=== PATIENT | female | born 1965 | race Caucasian/White ===

== ENCOUNTER → 2021-04-20 10:20 | Outpatient (BNVA) | payer MEDICARE, MEDICAID, SELFPAY | PROVIDERS: PCP Internal Medicine Rheumatology; Visit Provider Nurse Practitioner Family | DX: M79.7 Fibromyalgia (principal); M25.50 Pain in unspecified joint; E11.40 Type 2 diabetes mellitus with diabetic neuropathy, unspecified | CPT/HCPCS: 99202 ==

== ENCOUNTER → 2021-05-25 09:50 | Outpatient (BNVA) | payer MEDICARE, MEDICAID, SELFPAY | PROVIDERS: PCP Internal Medicine Rheumatology; Visit Provider Nurse Practitioner Family | DX: Z13.89 Encounter for screening for other disorder (principal) ==

== ENCOUNTER → 2021-06-13 08:11 | Outpatient (BNVA) | payer MEDICARE, MEDICAID, SELFPAY | PROVIDERS: PCP Internal Medicine Rheumatology; Visit Provider Nurse Practitioner Family | DX: M79.7 Fibromyalgia (principal); M25.50 Pain in unspecified joint; M47.27 Other spondylosis with radiculopathy, lumbosacral region; E11.40 Type 2 diabetes mellitus with diabetic neuropathy, unspecified | CPT/HCPCS: 99212 ==

== ENCOUNTER → 2021-10-04 11:04 | Day surgery (SDC) | payer OTHER, SELFPAY ==
[2021-09-28 10:37] VITALS: BMI 32.4
--- NOTE | 2021-10-03 10:18 | HO.ANESPROP2 ---
HPI - Anesthesia Eval Consult details Narrative: CX'd DOS by surgeon for hyperglycemia and htn. T/C to PCP with message left regarding POC and BP. 55yo F for Spinal Stimulation Generator Change PMFSH Active Problems Active Problems: All Active Problems (Updated 09/28/21 @ 10:37 by Rachael Murphy RN) Fibromyalgia (Acute) Diabetic neuropathy (Acute) Polyarthralgia (Acute) Spondylosis of lumbosacral spine with radiculopathy (Acute) Past Medical History Medical History (Updated 09/28/21 @ 10:37 by Rachael Murphy RN) Chronic renal insufficiency Diabetes Diabetic neuropathy Fibromyalgia GERD (gastroesophageal reflux disease) HTN (hypertension) PTSD (post-traumatic stress disorder) S/P placement of nerve stimulator Social History Social History Patient Tobacco Use Status: Never used Tobacco Are you DNR?: No Advance Directives: No Advance Directives Information Provided: Yes Nutrition Risks: No Nutritional Risk Meds Allergies Allergy/AdvReac Type Severity Reaction Status Date / Time No Known Allergies Allergy Verified 06/13/21 08:43 Home Medications Medication Instructions Recorded Confirmed Last Taken Type albuterol sulfate 90 mcg/actuation inhalation 04/20/21 06/13/21 10/04/21 History aerosol inhaler (Ventolin HFA) diclofenac sodium 1 % topical gel topical 04/20/21 06/13/21 Unknown History amlodipine 5 mg tablet 5 mg PO DAILY 05/25/21 06/13/21 10/04/21 History cyclobenzaprine 10 mg tablet 10 mg PO TID PRN 05/25/21 06/13/21 Unknown History dulaglutide 1.5 mg/0.5 mL 1.5 mg subcut QWEEK 05/25/21 06/13/21 Unknown History subcutaneous pen injector (Trulicity) duloxetine 60 mg capsule,delayed 60 mg PO BID 05/25/21 06/13/21 10/04/21 History release ezetimibe 10 mg tablet 10 mg PO DAILY 05/25/21 06/13/21 Unknown History gabapentin 100 mg capsule 100 mg PO BID 05/25/21 06/13/21 10/04/21 History hydrochlorothiazide 25 mg tablet 25 mg PO DAILY 05/25/21 06/13/21 Unknown History insulin glargine 100 unit/mL (3 14 unit subcut DAILY 05/25/21 06/13/21 Unknown History mL) subcutaneous pen (Lantus Solostar U-100 Insulin) lamotrigine 150 mg tablet 150 mg PO DAILY 05/25/21 06/13/21 10/04/21 History linaclotide 145 mcg capsule 145 mcg PO DAILY 05/25/21 06/13/21 Unknown History (Linzess) lisinopril 5 mg tablet 5 mg PO DAILY 05/25/21 06/13/21 10/04/21 History lurasidone 20 mg tablet (Latuda) 20 mg PO DAILY 05/25/21 06/13/21 Unknown History montelukast 10 mg tablet 10 mg PO BEDTIME 05/25/21 06/13/21 Unknown History omeprazole 20 mg capsule,delayed 20 mg PO DAILY 05/25/21 06/13/21 10/04/21 History release trazodone 50 mg tablet 50 mg PO BEDTIME 05/25/21 06/13/21 Unknown History Exam Exam Date and Time: October 03, 2021 1018 Height,Weight and Vital Signs: Height 5 ft 4 in Weight 85.729 kg Assessment and Plan Assessment Anesthesia Assessment: Chart Reviewed
[2021-10-04 12:01] VITALS: BP 197/110; PULSE 110; RESP 19; TEMP 36.1; O2SAT 97
[2021-10-04 12:03] LABS: Glucose, Whole Blood 387 mg/dL (60-115)
--- NOTE | 2021-10-04 12:18 | PC.NURSE ---
dr adler at bedside pt surgery canceled high bs and high b/p denies any symptoms
--- NOTE | 2021-10-04 12:20 | PC.NURSE ---
pt vernalized understanding of new careplan d/c home surgery cancelled
== END ==
PROVIDERS: PCP Family Medicine; Visit Provider Anesthesiology
DX: M47.27 Other spondylosis with radiculopathy, lumbosacral region (principal); Z53.09 Procedure and treatment not carried out because of other contraindication; E11.65 Type 2 diabetes mellitus with hyperglycemia; I10 Essential (primary) hypertension; Z79.4 Long term (current) use of insulin
CPT/HCPCS: 82947; J0690

== ENCOUNTER 2021-11-09 09:47 | Day surgery (SDC) | payer MEDICARE, MEDICAID, SELFPAY ==
--- NOTE | 2021-11-08 10:27 | HO.ANESPROP2 ---
Documented by User: Haleigh Marin NP 11/08/21 10:35 HPI - Anesthesia Eval Consult details Narrative: 55yo F for Lumbar Spinal Stimulation Generator Change/Replacement CX'd DOS 10/04/21 for elevated blood sugar and elevated blood pressure. Pt has since f/u with litigation support analyst. Per Dr Montoya, POC needs to be below 200 to proceed with surgery. ALFREDITO Gordon at pain office to contact PCP to see if eval regarding BP since 09/2021 PMFSH Active Problems Active Problems: All Active Problems (Updated 09/28/21 @ 10:37 by Rachael Murphy RN) Fibromyalgia (Acute) Diabetic neuropathy (Acute) Polyarthralgia (Acute) Spondylosis of lumbosacral spine with radiculopathy (Acute) Past Medical History Medical History Chronic renal insufficiency Diabetes Diabetic neuropathy Fibromyalgia GERD (gastroesophageal reflux disease) HTN (hypertension) PTSD (post-traumatic stress disorder) S/P placement of nerve stimulator Surgical History Surgical History History of esophagogastroduodenoscopy (EGD) Hx of arthroscopic knee surgery Hx of colonoscopy Hx of tubal ligation Social History Social History Patient Tobacco Use Status: Never used Tobacco Are you DNR?: No Advance Directives: No Advance Directives Information Provided: Yes Nutrition Risks: No Nutritional Risk Meds Allergies Allergy/AdvReac Type Severity Reaction Status Date / Time No Known Allergies Allergy Verified 11/09/21 10:26 Home Medications Medication Instructions Recorded Confirmed Last Taken Type albuterol sulfate 90 mcg/actuation inhalation 04/20/21 06/13/21 10/04/21 History aerosol inhaler (Ventolin HFA) diclofenac sodium 1 % topical gel topical 04/20/21 06/13/21 Unknown History amlodipine 5 mg tablet 5 mg PO DAILY 05/25/21 11/05/21 11/09/21 History cyclobenzaprine 10 mg tablet 10 mg PO TID PRN Muscle Pain 05/25/21 11/05/21 11/09/21 History dulaglutide 1.5 mg/0.5 mL 1.5 mg subcut QWEEK 05/25/21 11/05/21 Unknown History subcutaneous pen injector (Trulicity) duloxetine 60 mg capsule,delayed 60 mg PO BID 05/25/21 11/05/21 11/09/21 History release ezetimibe 10 mg tablet 10 mg PO DAILY 05/25/21 11/05/21 11/09/21 History gabapentin 100 mg capsule 100 mg PO BID 05/25/21 11/05/21 11/09/21 History hydrochlorothiazide 25 mg tablet 25 mg PO DAILY 05/25/21 11/05/21 11/09/21 History insulin glargine 100 unit/mL (3 14 unit subcut DAILY 05/25/21 11/05/21 Unknown History mL) subcutaneous pen (Lantus Solostar U-100 Insulin) lamotrigine 150 mg tablet 150 mg PO DAILY 05/25/21 11/05/21 11/09/21 History linaclotide 145 mcg capsule 145 mcg PO DAILY 05/25/21 11/05/21 Unknown History (Linzess) lisinopril 5 mg tablet 5 mg PO DAILY 05/25/21 11/05/21 11/09/21 History lurasidone 20 mg tablet (Latuda) 20 mg PO DAILY 05/25/21 11/05/21 11/09/21 History montelukast 10 mg tablet 10 mg PO BEDTIME 05/25/21 11/05/21 Unknown History omeprazole 20 mg capsule,delayed 20 mg PO DAILY 05/25/21 11/05/21 11/09/21 History release trazodone 50 mg tablet 50 mg PO BEDTIME 05/25/21 11/05/21 Unknown History cyanocobalamin (vitamin B-12) 1 tab PO DAILY 11/05/21 11/05/21 Unknown History 1,000 mcg tablet Exam Exam Date and Time: November 08, 2021 1027 Assessment and Plan Assessment Anesthesia Assessment: Chart Reviewed Documented by User: Mitzi Cedillo MD 11/09/21 10:43 [facility] Past Medical History Medical History Chronic renal insufficiency Diabetes Diabetic neuropathy Fibromyalgia GERD (gastroesophageal reflux disease) HTN (hypertension) PTSD (post-traumatic stress disorder) S/P placement of nerve stimulator Functional capacity: independent ambulation Patient : No Family History Family history of problems with anesthesia: No Surgical History Surgical History History of esophagogastroduodenoscopy (EGD) Hx of arthroscopic knee surgery Hx of colonoscopy Hx of tubal ligation History of Problems with Anesthesia: No Social History Social History Patient Tobacco Use Status: Never used Tobacco Are you DNR?: No Advance Directives: No Advance Directives Information Provided: Yes Nutrition Risks: No Nutritional Risk Meds Allergies Allergy/AdvReac Type Severity Reaction Status Date / Time No Known Allergies Allergy Verified 11/09/21 10:26 Home Medications Medication Instructions Recorded Confirmed Last Taken Type albuterol sulfate 90 mcg/actuation inhalation 04/20/21 06/13/21 10/04/21 History aerosol inhaler (Ventolin HFA) diclofenac sodium 1 % topical gel topical 04/20/21 06/13/21 Unknown History amlodipine 5 mg tablet 5 mg PO DAILY 05/25/21 11/05/21 11/09/21 History cyclobenzaprine 10 mg tablet 10 mg PO TID PRN Muscle Pain 05/25/21 11/05/21 11/09/21 History dulaglutide 1.5 mg/0.5 mL 1.5 mg subcut QWEEK 05/25/21 11/05/21 Unknown History subcutaneous pen injector (Trulicity) duloxetine 60 mg capsule,delayed 60 mg PO BID 05/25/21 11/05/21 11/09/21 History release ezetimibe 10 mg tablet 10 mg PO DAILY 05/25/21 11/05/21 11/09/21 History gabapentin 100 mg capsule 100 mg PO BID 05/25/21 11/05/21 11/09/21 History hydrochlorothiazide 25 mg tablet 25 mg PO DAILY 05/25/21 11/05/21 11/09/21 History insulin glargine 100 unit/mL (3 14 unit subcut DAILY 05/25/21 11/05/21 Unknown History mL) subcutaneous pen (Lantus Solostar U-100 Insulin) lamotrigine 150 mg tablet 150 mg PO DAILY 05/25/21 11/05/21 11/09/21 History linaclotide 145 mcg capsule 145 mcg PO DAILY 05/25/21 11/05/21 Unknown History (Linzess) lisinopril 5 mg tablet 5 mg PO DAILY 05/25/21 11/05/21 11/09/21 History lurasidone 20 mg tablet (Latuda) 20 mg PO DAILY 05/25/21 11/05/21 11/09/21 History montelukast 10 mg tablet 10 mg PO BEDTIME 05/25/21 11/05/21 Unknown History omeprazole 20 mg capsule,delayed 20 mg PO DAILY 05/25/21 11/05/21 11/09/21 History release trazodone 50 mg tablet 50 mg PO BEDTIME 05/25/21 11/05/21 Unknown History cyanocobalamin (vitamin B-12) 1 tab PO DAILY 11/05/21 11/05/21 Unknown History 1,000 mcg tablet Exam Airway Mallampati Class: III TM Dist: >3cm Neck ROM: Full Heart: RRR Lungs: CTA Assessment and Plan Final Anesthetic Review Family History of Problems with Anesthesia: No History of Problems with Anesthesia: No ASA Class: II Final Preanesthetic Review: No Changes in Pt Med Stat, Meds/Allgs Chart Reviewed, Consent Obtained/Reviewed and Anes Risks/Benef Reviewed Patient Risk: Low Procedure Risk: Low Anesthetic Plan Anesthetic Plan: GA Disposition: Standard PACU
[2021-11-09] VITALS (11 sets, daily range): BP systolic 139–153; BP diastolic 70–90; PULSE 72–88; RESP 12–18; TEMP 36.1–36.6; O2SAT 95–100; BMI 35.9
--- NOTE | ~2021-11-09 | FL_ITS ---
EXAMINATION: XR FLUOROSCOPY WITH IMAGES CLINICAL INFORMATION: Lumbar spinal cord stimulator generator change. COMPARISON: None. TECHNIQUE: Fluoroscopy performed by Dr. Giorgio Montoya. Fluoroscopy time: Less than 1 minute. Cumulative Dose: 1.10 mGy. DAP: 0.168 Gy-cm2. Images: 1. FINDINGS: Please refer to the provider note for full procedure details. FL/FL guidance in OR IMPRESSION: Fluoroscopic assistance provided at the time of the generator change. Please refer to the provider's note for full procedure details.
[2021-11-09] MEDS: Lactated Ringers 1,000 ML 100 ML IVCONT (10:18)
[2021-11-09 10:31] LABS: Glucose, Whole Blood 117 mg/dL (60-115)
--- NOTE | 2021-11-09 11:11 | P.HPSUR_ITS ---
Pre-Procedural Eval Section A Date of Service: 11/09/21 The patient is an INPATIENT: No Changes since office visit: Yes Patient answered all questions The History & Physical has been completed within 30 days and I have reviewed it.: No Section B Chief Complaint: Other spondylosis with radiculopathy, lumbosacral Details of Present Illness: as above Relevant Family History (Specify if Yes): No Present Medications: see Short Stay Collaborative assessment Medical History: No relevant PMH History of Previous Operations: No relevant previous surgery Allergies: Allergies Allergy/AdvReac Type Severity Reaction Status Date / Time No Known Allergies Allergy Verified 11/09/21 10:26 Review of Systems Sugical H&P ROS: Negative: Constitution, Cardiovascular, Respiratory, Neurological, Psychiatric, Hem-Onc, Allergic/Immunologic, Gastrointestinal, Genitourinary, Musculoskeletal, Integumentary, Endocrine and Eyes/Ears/Nose/Throat Exam Surgical H&P Exam: Normal: HEENT, Normal: Heart, Normal: Lungs, Normal: Extremities, Normal: Abdomen, Normal: Skin and Normal: Neurological Plan Diagnosis/Plan: Unchanged I have reviewed the history and physical and performed a pertinent physical examination on my patient. The patient wanted to replace the battery with the rechargeable model of Medtronic battery to allow herself to have higher level of SCS stimulation. She wanted also to relocate the battery from the left side to the right side. She was explained that in the order to do so I would need to perform three 5-6 cm long incisions and in the order to close the wound of the old large non- rechargeable battery I would need to use a Kieran Burns drain and keep it in for at least 4-5 weeks if not longer. When the patient understood the explanations she decided to keep the new battery at the old site. We will procede with battery exchange surgery without changing the location of the battery.
--- NOTE | 2021-11-09 11:28 | P.OP_ITS ---
Operative Note Operative Note Date of Service: 11/09/21 Narrative: Shawnee is very pleasant 55 y.o. female who came today into the operating room for the procedure of the exchange of non-rechargeable battery for rechargeable [employer] Intellis battery. The patient originally wanted to relocate her battery to the right side however when she was explained that this would require her to have three 5-6 cm incisions and to wear GODWIN drain for the next 5-6 weeks at least - she changed her mind and decided to go for the battery exchange procedure without the change of the location of the battery..? Preoperatively patient received? 2 g cephasolin approximately 20 minutes before procedure. After obtaining informed consent patient was brought to the operating room, SHE was positioned supine on the stretcher , [place] [employer]hes[employer] monitors were applied and patient was administered general endotracheal anesthesia. After that the patient was transferred to the operating table prone. All pressure points were protected. ?Time-out was performed delineating correct site, side, the nature of the procedure, patient's allergy, preoperative antibiotic if needed.? All operating room staff was participating in OR time-out procedure. Patient's entire back was prepped with ChloraPrep twice and draped with full body fenestrated drape and ioban film. Sterilely draped C-arm was brought over the operating field and picture of the battery was demonstrated on the screen. It was positioned right on top of the illiac crest. The decision was made to extend the battery pocket cephalad and close redundant tissue pocket in the area of the caudad direction. In the projection of the previous SCS implantation wound horizontal incision was made 6.5 cm long using 10 blade scalpel, hemostasis was performed using? bipolar electrocautery. the wound was widened using hemostat clamp and the old non-rechargeable battery was located in the wounds.? Anchoring sutures were severed and the battery was delivered to the level of the skin. The epidural leads were unlocked and disconnected from the battery and the battery was delivered to the OR instrument table for the future disposal. The new Intellis battery was sterilely obtained and connected to the existing epidural leads. Impedance was checked and appeared to be adequate short of 1 contact not showing appropriate impedance. That was pre last contact on 8-16 electrodes position. The [employer] payable representative inform me that he can work around with this contact even missing. Using sharp and dull dissection pocket for the battery was formed in cephalad direction from the incision.? Thorough hemostasis was obtained After that the? wound pocket going into caudad direction was explored and connective tissues forming the capsule of the battery was excised using sharp dissection with Metzenbaum sutures. After that the pocket was closed using 0-0 Polysorb suture. The anchoring sutures Tycron 0.0 were applied to the central medial and central lateral points of the wound they were connected to orifices of the b attery. The epidural leads were gathered behind the body of the battery and the battery was dislodged into the pocket with the distal tip of the battery facing cephalad. The anchoring sutures were tied up the position of the battery appeared to be satisfactory. After that the wound was closed using 0.0 Polysorb suture, the wound edges were superimposed using 2.0 Polysorb suture and candida were applied to the suture line. Bacitracin ointment will as applied to the suture line. Compression dressing was applied to the area of the wound. Abdominal binder was submitted to the patient. After that the patient was awaken extubated and transferred stable to PACU. She tolerated the procedure well.
--- NOTE | 2021-11-09 13:10 | PM.OP ---
Brief Operative Note Date of Service: 11/09/21 Pre-op diagnosis: chronic pain syndrome, spondylosis lumbar spine Post-op diagnosis: same Procedure: removal and replacement of Medtronics SCS battery Implants: Medtronics Intellis battery Surgeon: Giorgio Montoya MD Anesthesia: GETA Was an Type Copyist used for this Procedure?: No Estimated blood loss (mL): 5 Pathology: none sent Condition: stable Disposition: PACU
== END 2021-11-09 15:28 | disposition home or self-care (01) ==
PROVIDERS: PCP Family Medicine; Visit Provider Anesthesiology
PROC: (CPT 63685; principal; 2021-11-09 11:30)
DX: M47.27 Other spondylosis with radiculopathy, lumbosacral region (principal); G89.4 Chronic pain syndrome; M79.7 Fibromyalgia; M25.50 Pain in unspecified joint; F43.10 Post-traumatic stress disorder, unspecified; E11.40 Type 2 diabetes mellitus with diabetic neuropathy, unspecified; E11.22 Type 2 diabetes mellitus with diabetic chronic kidney disease; I12.9 Hypertensive chronic kidney disease with stage 1 through stage 4 chronic kidney disease, or unspecified chronic kidney disease; N18.30 Chronic kidney disease, stage 3 unspecified; R56.9 Unspecified convulsions; K29.70 Gastritis, unspecified, without bleeding; Z79.4 Long term (current) use of insulin; Z79.899 Other long term (current) drug therapy
CPT/HCPCS: 63685; 82947; C1787; C1820; J0690; J2250; J2405; J2795; J3010; J3370

== ENCOUNTER → 2021-11-15 08:31 | Outpatient (BNVA) | payer MEDICARE, MEDICAID, SELFPAY | PROVIDERS: PCP Family Medicine; Visit Provider Anesthesiology | DX: M79.7 Fibromyalgia (principal); M47.27 Other spondylosis with radiculopathy, lumbosacral region; M25.50 Pain in unspecified joint; E11.40 Type 2 diabetes mellitus with diabetic neuropathy, unspecified; Z98.890 Other specified postprocedural states | CPT/HCPCS: 99212 ==

== ENCOUNTER → 2021-11-22 09:39 | Outpatient (BNVA) | payer MEDICARE, MEDICAID, SELFPAY | PROVIDERS: PCP Family Medicine; Visit Provider Anesthesiology | DX: M79.7 Fibromyalgia (principal); M47.27 Other spondylosis with radiculopathy, lumbosacral region; E11.40 Type 2 diabetes mellitus with diabetic neuropathy, unspecified; M25.50 Pain in unspecified joint; Z98.890 Other specified postprocedural states | CPT/HCPCS: 99212 ==

== ENCOUNTER 2022-11-28 14:22 | Outpatient (REF) | payer MEDICARE, MEDICAID, SELFPAY ==
--- NOTE | 2022-11-29 09:33 | MHC.AU.HA3 ---
Hearing Instrument Follow-Up- Binaural Date of Visit: 11/28/22 Right Ear: Gabriel, Model, Color, Serial Number: Jolly MckinleyPro RAGHAV SN: [id number] Color: [place] Brown Battery Size: 312 User Experience Developer/Slim Tube: 2/85 Earmold/Dome/CShell/SlimTip:6mm double león dome with retention tail Type of Wax Guard: miniFit ProWax Dispensed By: [place] Date of Fitting: Per Oticon purchased in September 2016 Left Ear: Gabriel, Model, Color, Serial Number: Jolly AVILEZ SN: [id number] Color: [place] Brown Battery Size: 312 User Experience Developer/Slim Tube: 2/85 Earmold/Dome/CShell/SlimTip: 6mm double león dome with retention tail Type of Wax Guard: miniFit ProWax Dispensed By: [place] Date of Fitting: Per Oticon purchased in September 2016 Follow-Up Summary: Shawnee was a previous patient at a provider in [place]; however, the office reportedly closed and their second office in [place] does not accept her insurance. Shawnee was >20 minutes late to 30 minute appointment as she was reportedly lost; therefore, due to time constraints, hearing aids were not read into the programming software. Hearing aids were cleaned. Domes, wax guards, and retention tails were replaced. Receivers are discolored but still working. Right alumni relations coordinator was twisted. Reshaped the alumni relations coordinator with heat gun. Due to the age of the hearing aids, discussed upgrading to new technology. Recommendations: Shawnee will contact her PCP for a doctor's order for a hearing test to begin the process for new hearing aids. Diagnosis Code(s): Primary Diagnosis: H91.93 Unspecified Hearing Loss, Bilateral Signature: Provider: Deysi Schulte, [facility]
== END 2022-11-28 14:23 | disposition home or self-care (01) ==
LOC: HO.HAP 14:22
PROVIDERS: Visit Provider Family Medicine
DX: Z46.1 Encounter for fitting and adjustment of hearing aid (principal); H91.93 Unspecified hearing loss, bilateral
CPT/HCPCS: 92593; 99499

== ENCOUNTER 2023-04-09 15:03 | Outpatient (REF) | payer MEDICARE, MEDICAID, SELFPAY ==
--- NOTE | 2023-04-09 16:36 | MHC.AU.HA3 ---
Hearing Instrument Follow-Up- Binaural Date of Visit: 04/09/23 Right Ear: Gabriel, Model, Color, Serial Number: Jolly AVILEZ SN: [id number] Color: [place] Brown Battery Size: 312 [place] Redevelopment Site Manager/Slim Tube: 2/85 Earmold/Dome/CShell/SlimTip:6mm double león dome with retention tail Type of Wax Guard: miniFit ProWax Dispensed By: [place] Date of Fitting: Per Oticon purchased in September 2016 Left Ear: Gabriel, Model, Color, Serial Number: Jolly AVILEZ SN: [id number] Color: [place] Brown Battery Size: 312 [place] Redevelopment Site Manager/Slim Tube: 2/85 Earmold/Dome/CShell/SlimTip: 6mm double león dome with retention tail Type of Wax Guard: miniFit ProWax Dispensed By: [place] Date of Fitting: Per Oticon purchased in September 2016 Follow-Up Summary: Here for evaluation, see audiogram. These are her old aids, she reportedly has newer aids that are currently lost. Aids cleaned and checked, changed domes and wax guards. Listening check positive. Adjusted to new audio, stepped from adaptation 2 to 3. Improvement reported. Pt is going to reach out to [facility] to try to get any old KILLIAN info faxed to us so that we can replace her aids under L&D, if possible. Otherwise we will purse medical clearance and prior approval to get her new hearing aids. Recommendations: Recommendations: Have records including relevant hearing aid information forwarded to us so we can pursue L&D if possible, patient reports [facility] in [place] is now closed but she has been in touch with [facility]. Diagnosis Code(s): Primary Diagnosis: H90.3 Bilateral Sensorineural Hearing Loss Signature: Provider: Deysi Vaca, [facility]
== END 2023-04-09 15:04 | disposition home or self-care (01) ==
LOC: HO.SH 15:03
PROVIDERS: Visit Provider Family Medicine
DX: Z01.118 Encounter for examination of ears and hearing with other abnormal findings (principal); H90.3 Sensorineural hearing loss, bilateral
CPT/HCPCS: 92557; 92593; 99499

== ENCOUNTER 2023-04-23 14:14 | Outpatient (REF) | payer MEDICARE, MEDICAID, SELFPAY ==
--- NOTE | 2023-04-23 15:02 | MHC.AU.HA1 ---
Hearing Aid Evaluation Date of Visit: 04/23/23 Historical Information: Description of Hearing: Borderline normal to moderate sensorineural hearing loss, bilateral. Current personal amplification information, if applicable: Currently using old Nera 2 pro hearing aids, both of her newest HAs lost. Summary: Pt reports she got new hearing aids 1-2 years ago and both were recently lost somewhere between a trip in an ambulance and stay in [facility]. Those aids had been acquired elsewhere, a hearing life facility that is no longer in business. She was able to acquire the serial numbers of her lost hearing aids. Oticon Opn S2 R, [id number] under warranty until 04/06/25 and [id number] which has already been replaced under L&D per the authorization specialist. At this point we will replace the aid that is still covered under L&D and have to submit a PA request to [facility] to acquire a new left hearing aid so that she will have an appropriate pair. Completed and signed the L&D form today. Hearing Aid Prescription: Based on the individual?s shared listening needs, communication environments, dexterity, desire for connectivity, and personal preferences, the following prescription for amplification has been made: Right ear: Make, Model, Color: Oticon Opn S 2 miniRITE R, Chroma Beige Battery Size: Rechargeable Aluminum Siding Mechanic/Slim Tube: 2/85 with tail Type of Earmold/Dome/CShell/SlimTip: 6mm double león Left ear: Make, Model, Color: Oticon Opn S 2 miniRITE R, Chroma Beige Battery Size: Rechargeable Aluminum Siding Mechanic/Slim Tube: 2/85 with tail Type of Earmold/Dome/CShell/SlimTip: 6mm double león Plan of Care: Patient wishes to purchase hearing aids as prescribed Action Taken/Action Needed: Prior authorization to be requested Medical Clearance to be requested from PCP/ENT Hearing Instrument Fitting to be scheduled when materials arrive Primary Diagnosis: H90.3 Bilateral Sensorineural Hearing Loss Signature: Provider: Deysi Vaca, [facility]
== END 2023-04-23 14:15 | disposition home or self-care (01) ==
LOC: HO.HAP 14:14
PROVIDERS: Visit Provider Family Medicine
DX: Z46.1 Encounter for fitting and adjustment of hearing aid (principal); H90.3 Sensorineural hearing loss, bilateral
CPT/HCPCS: 92590

== ENCOUNTER 2023-05-19 14:00 | Outpatient (REF) | payer MEDICARE, MEDICAID, SELFPAY ==
--- NOTE | 2023-05-19 15:12 | MHC.AU.HA2 ---
Hearing Instrument Fitting- Adult- Binaural Date of Visit: 05/19/23 Hearing Instruments Dispensed: Right Ear: Make, Model, Color, Serial Number: Oticon Opn S 2 miniRITE R, Chroma Beige S#[id number] Emergency Room Specialist Repair Warranty: 04/11/2025 Emergency Room Specialist Loss and Damage Warranty: Used [facility] Service Plan: n/a Battery Size: Rechargeable Labor Contract Analyst/Slim Tube: 285 with tail Earmold/Dome/CShell/SlimTip: 6mm double león Type of Wax Guard: miniFit ProWax Left Ear: Make, Model, Color, Serial Number: Oticon Opn S 2 miniRITE R, Chroma Beige S#[id number] Emergency Room Specialist Repair Warranty: 05/29/2026 Emergency Room Specialist Loss and Damage Warranty: 05/29/2026 [facility] Service Plan: 05/19/24 Battery Size: Rechargeable Labor Contract Analyst/Slim Tube: 85 with tail Earmold/Dome/CShell/SlimTip: 6mm double león Type of Wax Guard: miniFit ProWax Accessories/Assistive Technology: [employer] minirite image processing engineer S#[id number] Warranty 05/29/2026 Summary of Fitting: Here with . Dispensed L&D replacement aid for right ear with new Opn S2 to match on the left. Verified to DSL Adult 5 targets. Good subjective comfort and benefit reported. Longtime KILLIAN user. Reviewed charging, domes and wax guards. VC enabled. Pt does not have an iPhone, these aids not compatible with Android. Sent her back up Nera 2 aids home in her new case. Recommendations: Recommendations: Hearing instrument care and maintenance were discussed and practiced. A hearing instrument follow-up was scheduled. Please call our clinic with any questions or concerns. Diagnosis Code(s): Primary Diagnosis: H90.3 Bilateral Sensorineural Hearing Loss Signature: Provider: Deysi Vaca, [facility]
== END 2023-05-19 14:01 | disposition home or self-care (01) ==
LOC: HO.HAP 14:00
PROVIDERS: Visit Provider Family Medicine
DX: Z46.1 Encounter for fitting and adjustment of hearing aid (principal); H90.3 Sensorineural hearing loss, bilateral
CPT/HCPCS: V5011; V5020; V5241; V5257

== ENCOUNTER 2023-06-09 12:53 | Outpatient (REF) | payer MEDICARE, MEDICAID, SELFPAY ==
--- NOTE | 2023-06-09 13:14 | MHC.AU.HA3 ---
Hearing Instrument Follow-Up- Binaural Date of Visit: 06/09/23 Right Ear: Make, Model, Color, Serial Number: Oticon Opn S 2 miniRITE R, Chroma Beige S#[id number] Rehab Aide Repair Warranty: 04/11/2025 Rehab Aide Loss and Damage Warranty: Used [facility] Service Plan: n/a Battery Size: Rechargeable Greenhouse Instructor/Slim Tube: with tail Earmold/Dome/CShell/SlimTip:6mm double león Type of Wax Guard: miniFit ProWax Dispensed By: [employer] Date of Fittin05/19/23 (replacement L&D) Left Ear: Make, Model, Color, Serial Number: Oticon Opn S 2 miniRITE R, Chroma Beige S#[id number] Rehab Aide Repair Warranty: 05/29/2026 Rehab Aide Loss and Damage Warranty: 05/29/2026 [facility] Service Plan: 05/19/24 Battery Size: Rechargeable Greenhouse Instructor/Slim Tube: 85 with tail Earmold/Dome/CShell/SlimTip: 6mm double león Type of Wax Guard: miniFit ProWax Dispensed By: [employer] Date of Fittin05/19/23 Follow-Up Summary: Here with . Reports great satisfaction with the hearing aids. No adjustments needed. Practiced changing domes and wax guards together. Recommendations: Recommendations: Hearing instrument follow-up or maintenance as needed. Diagnosis Code(s): Primary Diagnosis: H90.3 Bilateral Sensorineural Hearing Loss Signature: Provider: Deysi Vaca, [facility]
== END 2023-06-09 12:54 | disposition home or self-care (01) ==
LOC: HO.HAP 12:53
PROVIDERS: PCP Family Medicine; Visit Provider Family Medicine
DX: Z13.89 Encounter for screening for other disorder (principal)